=== PATIENT | female | born 1945 | race African-American/Black ===

== ENCOUNTER → 2016-04-16 | Outpatient (CLI) | payer MEDICARE, OTHER ==
[~2016-04-16] MED LIST: ALPR1TAB3 PO; CLOT1CRE8 TOPICAL; FLUTICASONE PROPIONA; FLUTPOW XX; GABA300C5 PO; GLIP5TAB8 PO; HYDR-3535 PO; LISI-519 PO; NEXI40CA PO; OMEP40CA2 PO; PIOG15TA5 PO; TRIA.1%T TOPICAL; TRIAM.1%T TOPICAL; VENTAER INH
[2016-04-16 12:25] LABS: MICRO ALBUMIN RANDOM URINE RAW 27.2 MG/L (0.0-30.0)
[2016-04-16 17:30] LABS: HEMOGLOBIN A1a 1.2 %; HEMOGLOBIN A1b 0.8 %; HEMOGLOBIN Ao 84.2 %; HEMOGLOBIN LA1C 1.9 %; HEMOGLOBIN P3 3.8 %
== END ==
LOC: ELAB 10:40
PROVIDERS: ATTEND Family Medicine
DX: E11.9 Type 2 diabetes mellitus without complications (principal)
CPT/HCPCS: 36415; 82043; 83036

== ENCOUNTER 2017-01-20 13:55 | Inpatient (IN) | payer MEDICARE, OTHER ==
[~2017-01-20] VITALS: Ht 170.2 cm; Wt 91.8 kg
[~2017-01-20 13:55] MED LIST changes: -FLUTICASONE PROPIONA; -FLUTPOW XX; -GABA300C5 PO; -OMEP40CA2 PO; +OXYB5TAB10 PO; -TRIAM.1%T TOPICAL; -VENTAER INH
[2017-01-20 13:57] VITALS: BP 163/75; PULSE 68; RESP 15; TEMP 98.4; O2SAT 98
--- NOTE | 2017-01-20 14:36 | PD ---
HPI Chief Complaint: Numbness/Tingling Time Seen by Provider: 14:26 Travel History International Travel<30 days: No Contact w/Intl Traveler<30days: No Traveled to known affect area: No History of Present Illness HPI Patient comes in for evaluation of left-sided chest numbness and tingling radiates into her left upper extremity. Patient states this began about 4 days ago. Patient states she's been taking a baby aspirin with the exception of today, but it seemed to help a little bit. Patient denies anything making it worse. Patient associated weakness in her left upper extremity. Patient denies any chest pain, shortness of breath, nausea, vomiting, headache, dizziness, fevers, loss change in bowel or bladder, or history of heart disease. PFSH Past Medical History Anxiety: Yes Depression: Yes Diabetes: Yes Diminished Hearing: No Gastrointestinal Disorders: Yes (DIVERTICULITIS) GERD: Yes Hypertension: Yes Musculoskeletal: Yes (ARTHRITIS) Immunizations Current: No (UNKNOWN) Sleep Apnea: Yes (C-PAP) Menopausal: Yes Past Surgical History Appendectomy: Yes Eye Surgery: Yes (CATARACT SX BILATERALLY) Gynecologic Surgery: Yes (LUMPCTOMY-NEGATIVE. ) Hysterectomy: Yes Social History Alcohol Use: No Tobacco Use: No Substance Use: No Allergies-Medications (Allergen,Severity, Reaction): Coded Allergies: Fish Containing Products (Unverified Allergy, Intermediate, Itching, ) Reported Meds & Prescriptions Reported Meds & Active Scripts Active Lisinopril 5 Mg Tab 5 Mg PO DAILY Alprazolam 1 Mg Tab 1 Mg PO HS PRN Ditropan (Oxybutynin Chloride) 5 Mg Tab 5 Mg PO Q12HR Triamcinolone Topical (Triamcinolone Acetonide) 0.1% Cream 1 Applic TOPICAL BID Nexium (Esomeprazole DR) 40 Mg Capdr 40 Mg PO DAILY Lortab (Hydrocodone-Acetaminophen) 10-325 Mg Tab 1 Tab PO TID PRN Pioglitazone (Pioglitazone HCl) 15 Mg Tab 15 Mg PO DAILY Glipizide 5 Mg Tab 5 Mg PO BIDAC Take 30 minutes before a meal Clotrimazole AF Topical (Clotrimazole) 1% Cream 1 Applic TOPICAL BID Reported Ditropan (Oxybutynin Chloride) 5 Mg Tab 5 Mg PO Q12HR Review of Systems Except as stated in HPI: all other systems reviewed are Neg Physical Exam Narrative GENERAL: Well-developed, overly nourished, in no acute distress, and non-ill appearing. SKIN: Focused skin assessment warm and dry. HEAD: Atraumatic. Normocephalic. EYES: Pupils equal and round. EOMI. No scleral icterus. No injection or drainage. ENT: No nasal bleeding or discharge. Mucous membranes pink and moist. NECK: Trachea midline. Supple. No nuclear rigidity. CARDIOVASCULAR: Regular rate and rhythm. No murmur appreciated. RESPIRATORY: No accessory muscle use. No respiratory distress. Clear to auscultation. Breath sounds equal bilaterally. MUSCULOSKELETAL: No obvious deformities. No clubbing. No cyanosis. No edema. Full range of motion. NEUROLOGICAL: Awake and alert. No obvious cranial nerve deficits. Motor grossly within normal limits. Normal speech. PSYCHIATRIC: Appropriate mood and affect; insight and judgment normal. Data Data Last Documented VS Vital Signs Date Time Temp Pulse Resp B/P (MAP) Pulse Ox O2 Delivery O2 Flow Rate FiO2 01/20/17 16:32 56 18 155/72 (99) 100 Room Air 155/74 (101) 01/20/17 13:57 98.4 Orders Orders Electrocardiogram (01/20/17 ) Electrocardiogram (01/20/17 14:33) Basic Metabolic Panel (Bmp) (01/20/17 14:33) Ckmb (Isoenzyme) Profile (01/20/17 14:33) Complete Blood Count With Diff (01/20/17 14:33) Magnesium (Mg) (01/20/17 14:33) Prothrombin Time / Inr (Pt) (01/20/17 14:33) Act Partial Throm Time (Ptt) (01/20/17 14:33) Troponin I (01/20/17 14:33) Chest, Single Ap (01/20/17 14:33) Ecg Monitoring (01/20/17 14:33) Bilateral Bp Monitoring (01/20/17 14:33) Iv Access Insert/Monitor (01/20/17 14:33) Oximetry (01/20/17 14:33) Oxygen Administration (01/20/17 14:33) Aspirin Chew (Aspirin Chew) (01/20/17 14:45) Sodium Chloride 0.9% Flush (Ns Flush) (01/20/17 14:45) Ct Brain W/O Iv Contrast(Rout) (01/20/17 ) CKMB (01/20/17 15:25) CKMB% (01/20/17 15:25) Consult Neurology (01/20/17 ) Mri Brain W&W/O Contrast (01/20/17 ) Mra Brain W/O Contrast (Cow) (01/20/17 ) Echo 2d Comp With Doppler (01/20/17 ) Us Carotid Arteries Comp Bilat (01/20/17 ) Admit Order (Ed Use Only) (01/20/17 17:15) Labs Laboratory Tests Test 01/20/17 15:25 White Blood Count 7.6 TH/MM3 Red Blood Count 4.82 MIL/MM3 Hemoglobin 12.8 GM/DL Hematocrit 40.0 % Mean Corpuscular Volume 83.0 FL Mean Corpuscular Hemoglobin 26.6 PG Mean Corpuscular Hemoglobin Concent 32.0 % Red Cell Distribution Width 15.6 % Platelet Count 179 TH/MM3 Mean Platelet Volume 9.6 FL Neutrophils (%) (Auto) 55.8 % Lymphocytes (%) (Auto) 35.3 % Monocytes (%) (Auto) 7.8 % Eosinophils (%) (Auto) 0.6 % Basophils (%) (Auto) 0.5 % Neutrophils # (Auto) 4.2 TH/MM3 Lymphocytes # (Auto) 2.7 TH/MM3 Monocytes # (Auto) 0.6 TH/MM3 Eosinophils # (Auto) 0.0 TH/MM3 Basophils # (Auto) 0.0 TH/MM3 CBC Comment DIFF FINAL Differential Comment Prothrombin Time 10.3 SEC Prothromb Time International Ratio 0.9 RATIO Activated Partial Thromboplast Time 26.1 SEC Blood Urea Nitrogen 16 MG/DL Creatinine 0.84 MG/DL Random Glucose 148 MG/DL Calcium Level 9.2 MG/DL Magnesium Level 1.7 MG/DL Sodium Level 141 MEQ/L Potassium Level 3.9 MEQ/L Chloride Level 108 MEQ/L Carbon Dioxide Level 26.1 MEQ/L Anion Gap 7 MEQ/L Estimat Glomerular Filtration Rate 81 ML/MIN Total Creatine Kinase 114 U/L Creatine Kinase MB 1.0 NG/ML Troponin I LESS THAN 0.02 NG/ML MDM Medical Decision Making Medical Screen Exam Complete: Yes Emergency Medical Condition: Yes Interpretation(s) EKG reviewed by Dr. Crawford shows sinus bradycardia with ventricular rate of 52. No STEMI. Last Impressions Chest X-Ray 01/20/17 1433 Signed Impressions: Service Date/Time: January 14:49 - CONCLUSION: No acute disease. Diaz Torres MD Head CT 01/20/17 0000 Signed Impressions: Service Date/Time: , January 20, 2017 15:32 - CONCLUSION: 1. Senescent changes with mild periventricular small vessel ischemic white matter demyelination. 2. No acute intracranial normality. 3. Chronic left maxillary sinusitis. Ruben Elizabeth MD Laboratory Tests Test 01/20/17 15:25 White Blood Count 7.6 TH/MM3 (4.0-11.0) Red Blood Count 4.82 MIL/MM3 (4.00-5.30) Hemoglobin 12.8 GM/DL (11.6-15.3) Hematocrit 40.0 % (35.0-46.0) Mean Corpuscular Volume 83.0 FL (80.0-100.0) Mean Corpuscular Hemoglobin 26.6 PG (27.0-34.0) Mean Corpuscular Hemoglobin Concent 32.0 % (32.0-36.0) Red Cell Distribution Width 15.6 % (11.6-17.2) Platelet Count 179 TH/MM3 (150-450) Mean Platelet Volume 9.6 FL (7.0-11.0) Neutrophils (%) (Auto) 55.8 % (16.0-70.0) Lymphocytes (%) (Auto) 35.3 % (9.0-44.0) Monocytes (%) (Auto) 7.8 % (0.0-8.0) Eosinophils (%) (Auto) 0.6 % (0.0-4.0) Basophils (%) (Auto) 0.5 % (0.0-2.0) Neutrophils # (Auto) 4.2 TH/MM3 (1.8-7.7) Lymphocytes # (Auto) 2.7 TH/MM3 (1.0-4.8) Monocytes # (Auto) 0.6 TH/MM3 (0-0.9) Eosinophils # (Auto) 0.0 TH/MM3 (0-0.4) Basophils # (Auto) 0.0 TH/MM3 (0-0.2) CBC Comment DIFF FINAL Differential Comment Prothrombin Time 10.3 SEC (9.8-11.6) Prothromb Time International Ratio 0.9 RATIO Activated Partial Thromboplast Time 26.1 SEC (24.3-30.1) Blood Urea Nitrogen 16 MG/DL (7-18) Creatinine 0.84 MG/DL (0.50-1.00) Random Glucose 148 MG/DL (74-106) Calcium Level 9.2 MG/DL (8.5-10.1) Magnesium Level 1.7 MG/DL (1.5-2.5) Sodium Level 141 MEQ/L (136-145) Potassium Level 3.9 MEQ/L (3.5-5.1) Chloride Level 108 MEQ/L (98-107) Carbon Dioxide Level 26.1 MEQ/L (21.0-32.0) Anion Gap 7 MEQ/L (5-15) Estimat Glomerular Filtration Rate 81 ML/MIN (>89) Total Creatine Kinase 114 U/L (26-192) Creatine Kinase MB 1.0 NG/ML (0.5-3.6) Troponin I LESS THAN 0.02 NG/ML Differential Diagnosis Acute coronary syndrome, atypical chest pain, electrolyte abnormality, subacute stroke, pneumonia, radiculopathy, other Narrative Course Patient was seen and examined. Initial laboratory radiological studies were ordered. Patient was given 162 mg of aspirin. Discussed patient with Dr. Crawford , who saw and evaluated the patient recommends discussed patient with neurology. Discussed patient with neurology, who recommends having patient admitted for possible lacunar CVA. Discussed all findings and plan care of patient was agreeable for admission. All questions were answered. Discussed patient with hospitalist who is agreeable to admit the patient. Physician Communication Physician Communication [address] Grimaldo neurologist agronomy location manager who recommends having patient admitted for possible lacunar stroke. Recommends obtaining MRI, MRA, 2- D echo, and carotid ultrasounds. Admission to medicine with a consult to him. [address] Holder, who is agreeable to admit the patient. Diagnosis Primary Impression: Left sided numbness Additional Impression: rule out CVA Admitting Information Admitting Physician Requests: Observation Condition: Stable Luke Owen Jan 20, 2017 14:36
[2017-01-20] MEDS ORDERED: ASPIRIN 81 MG CHEW TAB PO ONE (14:45)
[2017-01-20] MEDS ORDERED: SODIUM CHLORIDE 0.9% FLUSH 10 ML FLUSH IVF PRN (14:45)
--- NOTE | 2017-01-20 15:00 | RADRPT ---
EXAM DATE/TIME: 01/20/2017 14:49 [facility] COMPARISON: CHEST SINGLE AP, August 10, 2015, 10:03. INDICATIONS : Left side chest pain and tingling down left arm. MEDICAL HISTORY : Diabetes mellitus type II. Chronic obstructive pulmonary disease. SURGICAL HISTORY : None. ENCOUNTER: Initial ACUITY: 1 day PAIN SCORE: 4/10 LOCATION: Bilateral chest FINDINGS: A single view of the chest demonstrates the lungs to be symmetrically aerated without evidence of mas s, infiltrate or effusion. There are some chronic interstitial changes bilaterally. The cardiomediast inal contours are unremarkable. Osseous structures are intact. CONCLUSION: No acute disease. Diaz Torres MD on January 20, 2017 at 14:58 Board Certified Radiologist. This report was verified electronically.
[2017-01-20 15:40] LABS: AUTOMATED NEUTROPHIL # 4.2 TH/MM3 (1.8-7.7); BASOPHIL % 0.5 % (0.0-2.0); EOSINOPHIL % 0.6 % (0.0-4.0); HEMO FLAGS DIFF FINAL; LYMPH % 35.3 % (9.0-44.0); LYMPHOCYTE # 2.7 TH/MM3 (1.0-4.8); MEAN CORPUSCULAR HEMOGLOBIN 26.6 PG (27.0-34.0); MONO % 7.8 % (0.0-8.0); NEUT % 55.8 % (16.0-70.0); PLATELET COUNT 179 TH/MM3 (150-450); RED BLOOD COUNT 4.82 MIL/MM3 (4.00-5.30); RED CELL DISTRIBUTION WIDTH 15.6 % (11.6-17.2); WHITE BLOOD COUNT 7.6 TH/MM3 (4.0-11.0)
--- NOTE | 2017-01-20 15:57 | RADRPT ---
EXAM DATE/TIME: 01/20/2017 15:32 [facility] COMPARISON: No previous studies available for comparison. INDICATIONS : Left frontal headache with left arm numbness and tingling . RADIATION DOSE: 56.35 CTDIvol (mGy) MEDICAL HISTORY : Hypertension. Diabetes mellitus type 1. SURGICAL HISTORY : Hysterectomy. ENCOUNTER: Initial ACUITY: 4 - 6 days PAIN SCALE: 5/10 LOCATION: cranial TECHNIQUE: Multiple contiguous axial images were obtained of the head. Using automated exposure control and adj ustment of the mA and/or kV according to patient size, radiation dose was kept as low as reasonably a chievable to obtain optimal diagnostic quality images. DICOM format image data is available electro nically for review and comparison. FINDINGS: CEREBRUM: Mild diffuse cerebral atrophy. Mild periventricular white matter hypodensities consistent with ischem ic demyelination. The ventricles are normal for degree of atrophy. No evidence of midline shift, mas s lesion, hemorrhage or acute infarction. No extra-axial fluid collections are seen. POSTERIOR FOSSA: The cerebellum and brainstem are intact. The 4th ventricle is midline. The cerebellopontine angle i s unremarkable. EXTRACRANIAL: The visualized portion of the orbits is intact. Nearly opacified left maxillary sinus. SKULL: The calvaria is intact. No evidence of skull fracture. CONCLUSION: 1. Senescent changes with mild periventricular small vessel ischemic white matter demyelination. 2. No acute intracranial normality. 3. Chronic left maxillary sinusitis. Ruben Elizabeth MD on January 20, 2017 at 15:53 Board Certified Radiologist. This report was verified electronically.
[2017-01-20 15:58] LABS: APTT (PATIENT) 26.1 SEC (24.3-30.1); INTERNATIONAL NORMALIZED RATIO 0.9 RATIO; PROTHROMBIN TIME - PATIENT 10.3 SEC (9.8-11.6)
[2017-01-20 16:06] LABS: ANION GAP 7 MEQ/L (5-15); BICARBONATE 26.1 MEQ/L (21.0-32.0); BLOOD UREA NITROGEN 16 MG/DL (7-18); CHLORIDE 108 MEQ/L (98-107); CREATINE KINASE 114 U/L (26-192); GLOMERULAR FILTRATION RATE 81 ML/MIN (>89); MAGNESIUM 1.7 MG/DL (1.5-2.5); POTASSIUM 3.9 MEQ/L (3.5-5.1); SODIUM (NA) 141 MEQ/L (136-145)
[2017-01-20 16:28] VITALS: BP 162/74; PULSE 60; RESP 20; O2SAT 99
[2017-01-20 16:32] VITALS: BP_SYST 155; BP_DIAS 72; BP_DIAS 74; PULSE 56; RESP 18; O2SAT 100
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
[2017-01-20] MEDS ORDERED: SODIUM CHLORIDE 0.9% FLUSH 5 ML FLUSH IV FLUSH PRN (17:45)
[2017-01-20] MEDS ORDERED: DEXTROSE 50% IN WATER 50 ML VIAL(D50) IV PUSH PRN (17:45)
[2017-01-20] MEDS ORDERED: ENALAPRILAT 1.25 MG/ML VIAL IV PUSH PRN (17:45)
[2017-01-20] MEDS ORDERED: GLUCAGON 1 MG/ML VIAL OTHER PRN (17:45)
[2017-01-20] MEDS ORDERED: RESP: ALBUTEROL 2.5 MG/IPRATROPIUM 0.5 MG NEB (PRN) NEB (17:45)
--- NOTE | 2017-01-20 18:25 | RADRPT ---
EXAM DATE/TIME: 01/20/2017 17:16 [facility] COMPARISON: CT BRAIN W/O CONTRAST, January 20, 2017, 15:32. INDICATIONS : Cerebrovascular accidnet. MEDICAL HISTORY : Hypertension. Gastroesophageal reflux disease. Diverticulitits. Colitis. Diabetes. Arthritis. SURGICAL HISTORY : Hysterectomy. Appendectomy. Bilateral cataract extraction. Mastectomy. Lumpectomy. Cholectomy. ENCOUNTER: Initial ACUITY: 1 day PAIN SCORE: 0/10 LOCATION: Bilateral neck PEAK SYSTOLIC VELOCITIES (cm/sec): ICA/CCA RATIO: Right: 1.0 Left: 1.9 ICA: Right: 64 Left: 121 CCA: Right: 64 Left: 63 ECA: Right: 73 Left: 66 VERTEBRAL: Right: 44 antegrade Left: 46 antegrade Elevated flow velocities and ICA/CCA ratios have been found to correlate with increased degrees of vessel stenosis, calculated as percentage of diameter relative to a normal segment of distal ICA/CCA FINDINGS: RIGHT CAROTID: No significant stenosis is visualized. The waveforms are within normal limits. LEFT CAROTID: No significant stenosis is visualized. The waveforms are within normal limits. VERTEBRAL ARTERIES: Antegrade flow is seen in both vertebral arteries. MISCELLANEOUS: None. CONCLUSION: Normal examination. Aniceto Allison MD on January 20, 2017 at 18:22 Board Certified Radiologist. This report was verified electronically.
[2017-01-20 18:27] VITALS: BP 166/72; PULSE 51; RESP 15; TEMP 98; O2SAT 98
[2017-01-20 20:00] VITALS: BP 155/75; PULSE 47; RESP 20; TEMP 97.9; O2SAT 99
[2017-01-20] MEDS ORDERED: GADODIAMIDE PF 287 MG/ML 20 ML VIAL (for RAD MRI) IV PUSH ONE (20:36)
--- NOTE | 2017-01-20 20:52 | RADRPT ---
EXAM DATE/TIME: 01/20/2017 20:19 [facility] COMPARISON: CT BRAIN W/O CONTRAST, January 20, 2017, 15:32. INDICATIONS : CVA. Left sided numbess and tingling. MEDICAL HISTORY : Diabetes mellitus type 2. SURGICAL HISTORY : Hysterectomy. Appendectomy. Left leg, cataracts, and lumpectomy. ENCOUNTER: Initial ACUITY: 1 day PAIN SCORE: 0/10 LOCATION: Head. Please note a normal MRA of the brain does not entirely exclude the possibility of a small aneurysm, nor the possibility of distal intracranial vessel disease. TECHNIQUE: 3D time of flight MRA was performed. Source images, multiplanar STS MIP, and 3D volume MIP reconstru ctions were reviewed. FINDINGS: There is excellent visualization of the major intracranial arteries out to the second-order branch ve ssels. There is no evidence for aneurysm, vessel truncation or stenosis, and no evidence for vascula r malformation. CONCLUSION: Normal examination. Aniceto Allison MD on January 20, 2017 at 20:48 Board Certified Radiologist. This report was verified electronically.
--- NOTE | 2017-01-20 20:58 | RADRPT ---
EXAM DATE/TIME: 01/20/2017 20:19 [facility] COMPARISON: MRA BRAIN W/O CONTRAST, January 20, 2017, 20:19. CT BRAIN W/O CONTRAST, January 20, 2017, 15:32. INDICATIONS : CVA. Left arm numbness and tingling. CONTRAST: 20 cc Omniscan (gadodiamide) IV MEDICAL HISTORY : Diabetes mellitus type 2. SURGICAL HISTORY : Hysterectomy. Appendectomy. Left leg, cataracts, and lumpectomy. ENCOUNTER: Initial ACUITY: 1 day PAIN SCORE: 0/10 LOCATION: Head. TECHNIQUE: Multiplanar, multisequence MRI of the brain was performed both prior to and following the administrat ion of paramagnetic contrast. FINDINGS: CEREBRUM: The ventricles are normal for age. No evidence of midline shift, mass lesion, hemorrhage or acute in farction. No extraaxial fluid collections are seen. The pituitary gland and suprasellar cistern are normal in configuration. WHITE MATTER: No significant signal abnormalities are seen in the white matter. POSTERIOR FOSSA: The cerebellum and brainstem are intact. The 4th ventricle is midline. The cerebellopontine angle is unremarkable. The cerebellar tonsils are normal in position. DIFFUSION IMAGING: No focal areas of restricted diffusion are seen. No evidence of acute infarction. EXTRACRANIAL: The visualized portions of the orbits and paranasal sinuses are unremarkable. POST-CONTRAST: No abnormal areas of parenchymal or dural enhancement. No evidence of blood-brain barrier breakdown. CONCLUSION: Normal examination for a patient of this age. Aniceto Allison MD on January 20, 2017 at 20:55 Board Certified Radiologist. This report was verified electronically.
[2017-01-20] MEDS: INSULIN ASPART SUPPLEMENTAL SCALE SQ SCH (21:00)
[2017-01-20] MEDS: SODIUM CHLORIDE 0.9% FLUSH 5 ML FLUSH IV FLUSH SCH (21:00)
[2017-01-20] MEDS ORDERED: OXYBUTYNIN CHLORIDE 5 MG TAB PO SCH (21:00)
[2017-01-20] MEDS ORDERED: ATORVASTATIN 10 MG TAB PO SCH (21:00)
[2017-01-20] MEDS: OXYBUTYNIN CHLORIDE 5 MG TAB PO SCH (22:10)
[2017-01-20] MEDS ORDERED: ALPRAZolam 1 MG TAB PO ONE (23:15)
[2017-01-21] VITALS: BP 122/57; PULSE 56; RESP 18; TEMP 97.7; O2SAT 98
[2017-01-21 04:00] VITALS: BP 121/58; PULSE 56; RESP 20; TEMP 98; O2SAT 96
[2017-01-21 06:54] LABS: HDL CHOLESTEROL 78.3 MG/DL (40.0-60.0); LDL CHOLESTEROL 57 MG/DL (0-99)
[2017-01-21] MEDS: INSULIN ASPART SUPPLEMENTAL SCALE SQ SCH (08:00)
[2017-01-21 08:13] VITALS: BP 108/69; PULSE 55; RESP 18; TEMP 98.1; O2SAT 98
[2017-01-21 08:21] VITALS: O2SAT 97
[2017-01-21] MEDS: OXYBUTYNIN CHLORIDE 5 MG TAB PO SCH (08:36)
[2017-01-21] MEDS: SODIUM CHLORIDE 0.9% FLUSH 5 ML FLUSH IV FLUSH SCH (08:37)
[2017-01-21] MEDS ORDERED: ASPIRIN 81 MG CHEW TAB PO SCH (09:00)
[2017-01-21] MEDS ORDERED: PANTOPRAZOLE SOD 40 MG DELAYED RELEASE TAB PO SCH (09:00)
[2017-01-21] MEDS ORDERED: GLUCAGON 1 MG/ML VIAL OTHER PRN (09:15)
[2017-01-21] MEDS ORDERED: SODIUM CHLORIDE 0.9% FLUSH 10 ML FLUSH IV FLUSH PRN (09:15)
[2017-01-21] MEDS ORDERED: DEXTROSE 50% IN WATER 50 ML VIAL(D50) IV PUSH PRN (09:15)
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
--- NOTE | 2017-01-21 10:42 | RADRPT ---
EXAM DATE/TIME: 01/21/2017 10:10 [facility] COMPARISON: No previous studies available for comparison. INDICATIONS : Left upper extremity weakness. MEDICAL HISTORY : Diabetes mellitus type 2. SURGICAL HISTORY : Appendectomy. Hysterectomy. ENCOUNTER: Initial ACUITY: 1 day PAIN SCORE: 0/10 LOCATION: cranial TECHNIQUE: Multiplanar, multisequence MRI examination of the cervical spine was performed. FINDINGS: VERTEBRAE: Normal vertebral body height. Homogeneous marrow signal. There are primary degenerative changes, dis c degeneration and disc space narrowing at C4-5, C5-6 and C6-7. No abnormal bone marrow edema is demo nstrated. ALIGNMENT: No evidence of subluxation. CORD: Normal configuration and signal. POST FOSSA: The cerebellar tonsils are normal in position. C2-C3: The thecal sac has a normal configuration. There is no evidence of disc herniation or spinal canal s tenosis. The neural foramina are patent bilaterally. C3-C4: Focal central disc bulging with disc osteophyte complex. The neural foramina are patent bilaterally. C4-C5: Broad-based bulging disc osteophyte complex. Mild narrowing of the left neural foramina. Mild narrowi ng of the right neural foramina. C5-C6: Broad-based bulging disc osteophyte complex. Mild narrowing of the left neural foramina. Right neural foramina is patent. C6-C7: Moderate broad-based bulging along with left paracentral bulging/protrusion. The neural foramina are patent bilaterally. C7-T1: The thecal sac has a normal configuration. There is no evidence of disc herniation or spinal canal s tenosis. The neural foramina are patent bilaterally. CONCLUSION: 1. Moderate diffuse broad-based bulging along with left paracentral disc bulging/protrusion at C6-7 2. Broad-based bulging with disc osteophyte complex at C4-5 and C5-6 3. Focal central bulging with disc osteophyte complex at C3-4. 4. Primary bony degenerative changes, disc degeneration and disc space narrowing involving the mid to lower cervical spine Diaz Torres MD on January 21, 2017 at 10:37 Board Certified Radiologist. This report was verified electronically.
[2017-01-21] MEDS ORDERED: INSULIN ASPART SUPPLEMENTAL SCALE SQ SCH (12:00)
[2017-01-21 12:23] VITALS: BP 137/63; PULSE 59; RESP 18; TEMP 97.1; O2SAT 100
--- NOTE | 2017-01-21 12:33 | HHI.PR ---
Subjective Remarks Follow-up TIA versus CVA 01/21/17-patient seen and examined; reports improvement of symptoms including left-sided numbness and tingling. Brain MRI/MRA negative and vitals unremarkable. Patient tolerated by mouth without any complication nausea and vomiting Objective Vitals Vital Signs Date Time Temp Pulse Resp B/P (MAP) Pulse Ox O2 Delivery O2 Flow Rate FiO2 01/21/17 08:13 98.1 55 18 108/69 (82) 98 01/21/17 04:00 98.0 56 20 121/58 (79) 96 01/21/17 00:00 97.7 56 18 122/57 (78) 98 01/20/17 20:00 97.9 47 20 155/75 (101) 99 01/20/17 20:00 97.9 47 20 155/75 (101) 99 01/20/17 18:27 98.0 51 15 166/72 (103) 98 Room Air 01/20/17 18:12 21 01/20/17 16:32 56 18 155/72 (99) 100 Room Air 155/74 (101) 01/20/17 16:29 Room Air 01/20/17 16:28 60 20 162/74 (103) 99 Room Air 01/20/17 13:57 98.4 68 15 163/75 (104) 98 I/O 01/20/17 01/20/17 01/20/17 01/21/17 01/21/17 01/21/17 07:00 15:00 23:00 07:00 15:00 23:00 Intake Total 240 ml Balance 240 ml Intake Oral 240 ml # Voids 1 1 Result Diagram: 01/20/17 1525 01/20/173 Imaging Last Impressions Cervical Spine MRI 01/21/17 0000 Signed Impressions: Service Date/Time: Saturday, January 21, 2017 10:10 - CONCLUSION: 1. Moderate diffuse broad-based bulging along with left paracentral disc bulging/ protrusion at C6-7 2. Broad-based bulging with disc osteophyte complex at C4-5 and C5-6 3. Focal central bulging with disc osteophyte complex at C3-4. 4. Primary bony degenerative changes, disc degeneration and disc space narrowing involving the mid to lower cervical spine Diaz Torres MD Chest X-Ray 01/20/17 1433 Signed Impressions: Service Date/Time: January 14:49 - CONCLUSION: No acute disease. Diaz Torres MD Head Magnetic Resonance Angiography 01/20/17 0000 Signed Impressions: Service Date/Time: January 20:19 - CONCLUSION: Normal examination. Aniceto Allison MD Head CT 01/20/17 0000 Signed Impressions: Service Date/Time: January 15:32 - CONCLUSION: 1. Senescent changes with mild periventricular small vessel ischemic white matter demyelination. 2. No acute intracranial normality. 3. Chronic left maxillary sinusitis. Ruben Elizabeth MD Carotid Artery Ultrasound 01/20/17 0000 Signed Impressions: Service Date/Time: January 17:16 - CONCLUSION: Normal examination. Aniceto Allison MD Brain MRI 01/20/17 0000 Signed Impressions: Service Date/Time: January 20:19 - CONCLUSION: Normal examination for a patient of this age. Aniceto Allison MD Objective Remarks GENERAL: NAD SKIN: Warm and dry. HEAD: Normocephalic. EYES: No scleral icterus. No injection or drainage. NECK: Supple, trachea midline. No JVD or lymphadenopathy. CARDIOVASCULAR: Regular rate and rhythm without murmurs, gallops, or rubs. RESPIRATORY: Breath sounds equal bilaterally. No accessory muscle use. GASTROINTESTINAL: Abdomen soft, non-tender, nondistended. MUSCULOSKELETAL: No cyanosis, or edema. BACK: Nontender without obvious deformity. No CVA tenderness. A/P Problem List: (1) CVA (cerebral vascular accident) ICD Code: I63.9 - Cerebral infarction, unspecified (2) TIA (transient ischemic attack) ICD Code: G45.9 - Transient cerebral ischemic attack, unspecified (3) Diabetes ICD Code: E11.9 - Type 2 diabetes mellitus without complications Status: Chronic Assessment and Plan 71-year-old female with Lacunar CVA vs TIA? Patient symptoms resolved which point toward TIA -Continue with aspirin and statin therapy -NIHSS, Neuro checks, Monitor on telemetry -PT/OT/ST evaluations, consult rehab medicine -Allow permissive HTN, IV Vasotec and IV labetalol if SBP >220 -LDH 57 and HgbA1c pending -Head CT 01/20/17 with No acute intracranial disease -Brain MRI/MRA as well as carotid ultrasound negative -2D echocardiogram pending -Appreciate input from Neurology History of hypertension: Currently allowed permissive hypertension, however prior to discharge will restart patient home medication Diabetes type 2 Hemoglobin A1c pending Continue insulin sliding scale with fingerstick blood glucose monitoring. Continue to Hold oral hypoglycemic agent DVT prophylaxis: Bilateral SCDs Discharge Planning Discharge patient to home Condition on discharge: Improved Regular Diet as tolerated Ad Kassi activity Rx written:ASA 81 mg daily Follow-up with primary care physician in 1 week Neurology Problem Qualifiers (1) TIA (transient ischemic attack): Qualified Codes: G45.9 - Transient cerebral ischemic attack, unspecified Jaya Holder MD Jan 21, 2017 12:33
[2017-01-21 15:48] LABS: HEMOGLOBIN A1a 1.3 %; HEMOGLOBIN A1b 0.9 %; HEMOGLOBIN Ao 83.2 %; HEMOGLOBIN F 1.2 %; HEMOGLOBIN P3 3.9 %
[2017-01-21 16:03] VITALS: BP 140/61; PULSE 56; RESP 18; TEMP 98.2; O2SAT 98
[2017-01-21] MEDS ORDERED: ASPI81CH25 PO (16:32)
--- NOTE | 2017-01-21 18:15 | ECHRPT ---
Indication: CVA/TIA CONCLUSIONS Normal left ventricular size. Mild concentric left ventricular hypertrophy. The left ventricular systolic function is hyperdynamic with an estimated ejection fraction in the ra nge of 65- 70%. There is moderate tricuspid regurgitation. There is estimated mild pulmonary hypertension present (range 40-50 mmHg). BP: 166 / 72 HR: Rhythm: Sinus MEASUREMENTS (Male / Female) Normal Values Technical Quality:Good 2D ECHO LV Diastolic Diameter PLAX 4.5 cm 4.2 - 5.9 / 3.9 - 5.3 cm LV Systolic Diameter PLAX 2.9 cm IVS Diastolic Thickness 1.1 cm 0.6 - 1.0 / 0.6 - 0.9 cm LVPW Diastolic Thickness 1.1 cm 0.6 - 1.0 / 0.6 - 0.9 cm LV Relative Wall Thickness 0.5 LVOT Diameter 1.7 cm Aortic Root Diameter 3.3 cm M-MODE AV Cusp Separation MM 2.2 cm DOPPLER AV Peak Velocity 163.0 cm/s AV Peak Gradient 10.6 mmHg AV Mean Gradient 6.0 mmHg AV Velocity Time Integral 40.8 cm LVOT Peak Velocity 135.0 cm/s LVOT Peak Gradient 7.3 mmHg LVOT Velocity Time Integral 27.9 cm AV Area Cont Eq vti 1.6 cm AV Area Cont Eq pk 1.9 cm Mitral E Point Velocity 107.0 cm/s Mitral A Point Velocity 94.3 cm/s Mitral E to A Ratio 1.1 LV E' Lateral Velocity 8.2 cm/s Mitral E to LV E' Lateral Ratio 13.1 LV E' Septal Velocity 7.2 cm/s Mitral E to LV E' Septal Ratio 14.8 TR Peak Velocity 279.3 cm/s TR Peak Gradient 31.2 mmHg Right Atrial Pressure 10.0 mmHg Pulmonary Artery Systolic Pressu 41.2 mmHg Right Ventricular Systolic Press 41.2 mmHg PV Peak Velocity 93.2 cm/s PV Peak Gradient 3.5 mmHg FINDINGS LEFT VENTRICLE Normal left ventricular size. Mild concentric left ventricular hypertrophy. The left ventricular systolic function is hyperdynamic with an estimated ejection fraction in the ra nge of 65- 70%. TRICUSPID VALVE There is moderate tricuspid regurgitation. There is estimated mild pulmonary hypertension present (range 40-50 mmHg). Bran Lazo MD (Electronically Signed) Final Date:21 January 2017 18:14
[2017-01-21] MEDS ORDERED: SODIUM CHLORIDE 0.9% FLUSH 10 ML FLUSH IV FLUSH SCH (21:00)
--- NOTE | 2017-01-21 22:02 | EKG ---
Date Performed: 01/20/2017 Time Performed: 16:31:42 PTAGE: 71 years EKG: SINUS BRADYCARDIA POSSIBLE LEFT ATRIAL ENLARGEMENT BORDERLINE ECG NO PREVIOUS TRACING DOCTOR: Adrian Escalante Interpretating Date/Time 01/21/2017 21:33:54
== END 2017-01-21 19:46 | disposition home or self-care (01) | DRG 69 ==
LOC: NEPC 13:55 → NEDA 17:19 → OBSVTOIN 17:41 → N05B 19:00
PROVIDERS: ADMIT Hospitalist; ATTEND Hospitalist
DX: G45.9 Transient cerebral ischemic attack, unspecified (principal); E11.9 Type 2 diabetes mellitus without complications; M06.9 Rheumatoid arthritis, unspecified; I10 Essential (primary) hypertension; R20.0 Anesthesia of skin; F32.9 Major depressive disorder, single episode, unspecified; F41.9 Anxiety disorder, unspecified; K21.9 Gastro-esophageal reflux disease without esophagitis; G47.30 Sleep apnea, unspecified; Z79.84 Long term (current) use of oral hypoglycemic drugs; Z80.3 Family history of malignant neoplasm of breast; Z80.1 Family history of malignant neoplasm of trachea, bronchus and lung; Z82.3 Family history of stroke; Z87.891 Personal history of nicotine dependence
CPT/HCPCS: 70450; 70544; 70553; 71010; 72141; 80048; 80061; 82550; 82552; 82947; 82948; 83036; 83735; 84484; 85025; 85610; 85730; 93005; 93306; 93880; A9579; J1815